=== PATIENT | female | born 2000 | race Caucasian/White ===

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

== ENCOUNTER 2021-01-04 00:08 | Emergency (ER) | payer OTHER ==
[~2021-01-04] VITALS: Ht 165.1 cm; Wt 73.7 kg
[~2021-01-04 00:08] MED LIST: LEVO50TA PO
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
[2021-01-04] MEDS ORDERED: OXYcodone IR 5MG TABLET PO STA (00:46)
[2021-01-04] MEDS ORDERED: OXYcodone IR 5MG TABLET ONE (00:58)
--- NOTE | 2021-01-04 01:11 | NUR ---
BREAK RN; RETURNED FROM X RAY, LABS BEING DRAWN
[2021-01-04 01:25] LABS: BASOPHILS % (AUTO) 1 % (0-1); EOSINOPHILS % (AUTO) 0 % (1-7); LYMPHOCYTES % (AUTO) 10 % (22-44); MEAN CORPUSCULAR HEMOGLOBIN 29.8 pg (27.0-34.8); MEAN CORPUSCULAR HGB CONC 33.7 g/dL (32.4-35.8); MEAN PLATELET VOLUME 8.7 fL (7.4-10.4); MONOCYTES % (AUTO) 5 % (2-9); NEUTROPHILS % (AUTO) 85 % (42-75); PLATELET COUNT 254 x10^3/uL (130-400); RED BLOOD COUNT 4.29 x10^6/uL (3.82-5.3); RED CELL DISTRIBUTION WIDTH 12.6 % (9.6-15.2)
[2021-01-04 01:29] LABS: MD NO
[2021-01-04] MEDS ORDERED: ONDANSETRON ODT 4 MG ONE (01:35)
[2021-01-04 01:36] LABS: ALBUMIN 3.5 g/dL (3.4-5.0); ANION GAP 10 mmol/L (5-15); CALCIUM 8.7 mg/dL (8.5-10.1); CHLORIDE 106 mmol/L (98-107); CREATININE 0.62 mg/dL (0.55-1.02)
--- NOTE | 2021-01-04 01:45 | NUR ---
PT STATES FEELING NAUSEATED AFTER MEDS. PROVIDER AWARE, AND ZOFRAN ORDERED. PT STATES PAIN HAS IMPROVED. WILL MONITOR.
[2021-01-04] MEDS ORDERED: ONDANSETRON ODT 4 MG PO ONE (02:00)
--- NOTE | 2021-01-04 02:40 | NUR ---
slilng applied pt resting on gurney, ice applied awaiting additional imaging at this time
[2021-01-04 04:43] VITALS: BP 111/69
--- NOTE | 2021-01-04 04:45 | NUR ---
PT GIVEN JUICE AND CRACKERS. TOLERATED PO WELL. PT STEADY ON FEET. PT INSTRUCTED TO F/U WITH ORTHO. PT DRESSED AND ARM IN SLING WITH +CSM PT HOME WITH A RIDE, AND WAS INSTRUCTED NOT TO DRIVE. PT HOME WITH ROOMMATE. Patient/Caregiver given discharge instructions and they have confirmed that they understand the instructions. Patient ambulatory with steady gait.
== END 2021-01-04 04:47 | disposition home or self-care (01) ==
LOC: ED 01:40
DX: S42.032A Displaced fracture of lateral end of left clavicle, initial encounter for closed fracture (principal); S06.0X0A Concussion without loss of consciousness, initial encounter; S00.81XA Abrasion of other part of head, initial encounter; R00.0 Tachycardia, unspecified; V86.69XA Passenger of other special all-terrain or other off-road motor vehicle injured in nontraffic accident, initial encounter; Y93.89 Activity, other specified; Y92.488 Other paved roadways as the place of occurrence of the external cause; Y99.8 Other external cause status; M54.2 Cervicalgia
CPT/HCPCS: 36415; 70450; 71101; 72125; 73030; 73080; 80048; 82040; 84703; 85025; 99285; Q0162; 96365; 96366; 99284

== ENCOUNTER 2021-01-05 21:34 | Emergency (ER) | payer OTHER ==
[~2021-01-05] VITALS: Ht 165.1 cm; Wt 74.4 kg
--- NOTE | 2021-01-05 22:18 | NUR ---
PATIENT TO XRAY VIA [employer] e App AND ROOF BOLTER.
[2021-01-05] MEDS ORDERED: KETOROLAC 30 MG/1 ML ONE (22:22)
[2021-01-05] MEDS ORDERED: METHOCARBAMOL 750 MG TABLET ONE (22:22)
[2021-01-05] MEDS ORDERED: METHOCARBAMOL 750 MG TABLET PO ONE (22:30)
[2021-01-05] MEDS ORDERED: KETOROLAC 30 MG/1 ML IM ONE (22:30)
--- NOTE | 2021-01-05 22:32 | NUR ---
PATIENT RETURNED FROM XRAY, TOLERATED WELL. PATIENT GIVEN MEDICATIONS. UPDATED ON PLAN OF CARE. WILL CONTINUE TO MONITOR.
--- NOTE | 2021-01-05 22:41 | NUR ---
PATIENT UP TO RESTROOM, TOLERATING WELL.
[2021-01-05 23:54] VITALS: BP 119/63
--- NOTE | 2021-01-05 23:56 | NUR ---
PT UPDATED ON PLAN OF CARE. NO NOTED NEEDS AT THIS TIME. VSS, WILL CONTINUE TO MONITOR.
== END 2021-01-06 00:19 | disposition home or self-care (01) ==
LOC: ED 22:23
DX: S20.212A Contusion of left front wall of thorax, initial encounter (principal); R07.89 Other chest pain; X58.XXXA Exposure to other specified factors, initial encounter; Y93.89 Activity, other specified; Y92.89 Other specified places as the place of occurrence of the external cause; Y99.8 Other external cause status
CPT/HCPCS: 71101; 96372; 99283; J1885